=== PATIENT | female | born 1995 | race Caucasian/White ===

== ENCOUNTER 2021-06-28 06:55 | Emergency (ER) | payer MEDICAID ==
[~2021-06-28] VITALS: Ht 149.9 cm; Wt 68.0 kg
[2021-06-28 07:24] VITALS: BP 139/100
--- NOTE | 2021-06-28 07:27 | NUR ---
TO LOBBY A/W BED AMBULATORY, SEEN AND EXAMINED BY ERMD WITH ORDERS.
[2021-06-28] MEDS ORDERED: ONDANSETRON 4 MG ODT PO ONE (07:30)
[2021-06-28] MEDS ORDERED: DICYCLOMINE HCL LIQUID 20 MG, ALUMINUM HYD/MAG/SIMETHICONE 30 ML, LIDOCAINE VISCOUS 2% ... PO ONE ×3 (07:30)
[2021-06-28] MEDS ORDERED: DICYCLOMINE HCL LIQUID 10 MG/5 ML UDC ONE (07:40)
[2021-06-28] MEDS ORDERED: ALUMINUM HYD/MAG/SIMETHICONE 30 ML UDC ONE (07:40)
--- NOTE | 2021-06-28 07:53 | NUR ---
BIB SELF C/O EPIGASTRIC PAIN SINCE MONDAY, RADIATING TO BACK, NAUSEA. SKIN IS PINK/WARM/DRY; AAOX4 WITH EVEN AND STEADY GAIT; LUNGS CLEAR BL; HR EVEN AND REGULAR; PT DENIES ANY FEVER, CP, SOB, OR COUGH AT THIS TIME; PATIENT STATES PAIN OF 6/10 AT THIS TIME.
[2021-06-28 08:39] LABS: BASOPHILS % (AUTO) 0.6 % (0.0-2.0); EOSINOPHILS # (AUTO) 0.1 K/uL (0-0.4); EOSINOPHILS % (AUTO) 0.7 % (0.0-4.0); HEMATOCRIT 42.7 % (36-48); HEMOGLOBIN 14.5 g/dL (12.0-16.0); LYMPHOCYTES # (AUTO) 1.7 K/uL (2.5-16.5); LYMPHOCYTES % (AUTO) 24.2 % (20.5-51.1); MEAN CORPUSCULAR HEMOGLOBIN 30 pg (27-31); MEAN CORPUSCULAR HGB CONC 34 g/dL (33-37); MEAN CORPUSCULAR VOLUME 88.3 fL (80-94); MONOCYTES # (AUTO) 0.4 K/uL (0.8-1.0); MONOCYTES % (AUTO) 6.2 % (1.7-9.3); NEUTROPHILS # (AUTO) 4.8 K/uL (1.8-7.7); NEUTROPHILS % (AUTO) 68.3 % (42.2-75.2); PLATELET COUNT (AUTO) 307 K/uL (140-450); RED BLOOD CELL COUNT(AUTO) 4.84 MIL/uL (4.20-5.40); RED CELL DISTRIBUTION WIDTH 13.2 % (11.6-13.7)
[2021-06-28 09:03] LABS: ALBUMIN 4.3 g/dL (3.4-5.0); ANION GAP 13.5 (8-16); CARBON DIOXIDE 26.6 mmol/L (21-32); CREATININE 0.7 mg/dL (0.6-1.3); POTASSIUM 4.1 mmol/L (3.5-5.1); TOTAL BILIRUBIN 0.4 mg/dL (0.0-1.0)
[2021-06-28] MEDS ORDERED: FAMO-92 PO (09:10)
[2021-06-28] MEDS ORDERED: PROM12.512 PO (09:10)
[2021-06-28 09:34] VITALS: BP 139/100
--- NOTE | 2021-06-28 09:36 | NUR ---
Patient discharged with v/s stable. Written and verbal after care instructions given and explained. Patient alert, oriented and verbalized understanding of instructions. Ambulatory with steady gait. All questions addressed prior to discharge. ID band removed. Patient advised to follow up with PMD. Rx of FAMOTIDINE, PROMETHAZINE given. Patient educated on indication of medication including possible reaction and side effects. Opportunity to ask questions provided and answered.
== END 2021-06-28 09:36 | disposition home or self-care (01) ==
LOC: MED 06:55
DX: K29.70 Gastritis, unspecified, without bleeding (principal); Z79.899 Other long term (current) drug therapy
CPT/HCPCS: 36415; 76705; 80053; 81002; 81025; 83690; 85025; 99284; Q0162

== ENCOUNTER 2022-08-22 17:23 | Emergency (ER) | payer MEDICAID ==
[~2022-08-22] VITALS: Ht 149.9 cm; Wt 67.8 kg
[~2022-08-22 17:23] MED LIST: FAMO-92 PO; PROM12.512 PO
[2022-08-22 17:43] VITALS: BP 137/97
--- NOTE | 2022-08-22 17:50 | NUR ---
PT AMB TO BED 6.
[2022-08-22] MEDS ORDERED: ONDANSETRON 4 MG/2 ML VIAL IVP ONE (18:30)
[2022-08-22] MEDS ORDERED: NACL 0.9% 1,000 ML IV SCH (18:30)
[2022-08-22 18:49] LABS: BASOPHILS # (AUTO) 0.1 K/uL (0.00-0.22); BASOPHILS % (AUTO) 0.5 % (0.0-2.0); EOSINOPHILS % (AUTO) 0.3 % (0.0-4.0); HEMATOCRIT 40.3 % (36-48); HEMOGLOBIN 13.8 g/dL (12.0-16.0); LYMPHOCYTES # (AUTO) 2.3 K/uL (2.5-16.5); LYMPHOCYTES % (AUTO) 18.1 % (20.5-51.1); MEAN CORPUSCULAR HEMOGLOBIN 30 pg (27-31); MEAN CORPUSCULAR HGB CONC 34 g/dL (33-37); MEAN CORPUSCULAR VOLUME 86.8 fL (80-94); MONOCYTES # (AUTO) 0.6 K/uL (0.8-1.0); NEUTROPHILS # (AUTO) 9.6 K/uL (1.8-7.7); NEUTROPHILS % (AUTO) 76.1 % (42.2-75.2); PLATELET COUNT (AUTO) 276 K/uL (140-450); RED BLOOD CELL COUNT(AUTO) 4.64 MIL/uL (4.20-5.40); WHITE BLOOD COUNT (AUTO) 12.6 K/uL (4.8-10.8)
--- NOTE | 2022-08-22 18:50 | NUR ---
IV started, blood work obtained, handed to CPT at bedside.
--- NOTE | 2022-08-22 19:04 | NUR ---
27/F PRESENTS TO ED WITH C/O RLQ PAIN AND PELVIC PAIN X2 DAYS. REPORTS 6/10 CONSTANT, SHARP PAIN, DENIES N/V/D, DYSURIA FEVERS OR CHILLS. PATIENT DENIES CONCERN FOR STDS, DENIES VAGINAL DISCHARGE OR ABNORMAL BLEEDING.
[2022-08-22 19:07] LABS: ALBUMIN 4.1 g/dL (3.4-5.0); ANION GAP 12.8 (8-16); CARBON DIOXIDE 26.9 mmol/L (21-32); CREATININE 0.7 mg/dL (0.6-1.3); POTASSIUM 3.7 mmol/L (3.5-5.1); TOTAL BILIRUBIN 0.4 mg/dL (0.0-1.0)
--- NOTE | 2022-08-22 19:14 | NUR ---
Ultrasound at bedside.
--- NOTE | 2022-08-22 19:16 | NUR ---
Report given to BRAIN Reyes for transfer of care.
[2022-08-22 20:43] LABS: APPEARANCE,URINE CLEAR (CLEAR); BILIRUBIN,URINE NEGATIVE (NEGATIVE); BLOOD, URINE 1+ (NEGATIVE); COLOR,URINE YELLOW (YELLOW); LEUKOCYTE ESTERASE ,URINE NEGATIVE (NEGATIVE); NITRITE, URINE NEGATIVE (NEGATIVE); UGLUCOSE NEGATIVE (NEGATIVE)
[2022-08-22 21:00] LABS: WBC,URINE 0-5 /HPF (0-5)
[2022-08-22] MEDS ORDERED: KETOROLAC 15 MG/ML VIAL IVP ONE (21:20)
[2022-08-22] MEDS ORDERED: IBUP-2213 PO (21:41)
[2022-08-22 21:51] VITALS: BP 121/80
--- NOTE | 2022-08-22 21:51 | NUR ---
Patient discharged with v/s stable. Written and verbal after care instructions given and explained. Patient verbalized understanding. Ambulatory with steady gait. All questions addressed prior to discharge. Advised to follow up with PMD.
== END 2022-08-22 21:51 | disposition home or self-care (01) ==
LOC: MED 17:23
DX: N83.202 Unspecified ovarian cyst, left side (principal); Z79.899 Other long term (current) drug therapy
CPT/HCPCS: 36415; 74177; 76830; 80053; 81001; 81025; 83690; 85025; 96361; 96374; 96375; 99285; J1885; J2405; J7030; Q0092; Q9967